=== PATIENT | male | born 1990 | race Caucasian/White ===

== ENCOUNTER 2021-09-06 15:47 | Emergency (ER) | payer BC ==
[~2021-09-06] VITALS: Ht 180.3 cm; Wt 90.7 kg
[2021-09-06] MEDS ORDERED: KEFLEX250 MG PO (19:50)
[2021-09-06 20:02] VITALS: BP 135/72
== END 2021-09-06 20:02 | disposition home or self-care (01) ==
LOC: ER 15:47
DX: S92.422A Displaced fracture of distal phalanx of left great toe, initial encounter for closed fracture (principal); S92.532A Displaced fracture of distal phalanx of left lesser toe(s), initial encounter for closed fracture; W20.8XXA Other cause of strike by thrown, projected or falling object, initial encounter; Y93.89 Activity, other specified; Y92.69 Other specified industrial and construction area as the place of occurrence of the external cause; Y99.9 Unspecified external cause status